=== PATIENT | male | born 1990 | race Caucasian/White ===

== ENCOUNTER 2019-11-11 20:14 | Emergency (ER) | payer BC, SELFPAY ==
--- NOTE | 2019-11-11 20:22 | XR_ITS ---
WS: [id number] CHEST 2 VIEWS HISTORY: cough COMPARISON: 02/28/2011 Lungs: Clear with no abnormality. No pleural effusion or pneumothorax. Cardiac size: Normal. Mediastinum/Aorta: Normal mediastinum. Bones: Normal. XR/XR chest 2V* [id number] IMPRESSION: Normal chest.
[2019-11-11 20:29] VITALS: BP 145/98; PULSE 74; RESP 18; TEMP 36.9; O2SAT 96; BMI 42.0
--- NOTE | 2019-11-11 20:46 | ED_ITS ---
Documented by User: Rina Mcfarland DO 11/11/19 22:44 HPI - SOB/Dyspnea General: Chief Complaint: Shortness of Breath/Dyspnea Stated Complaint: SOB Time Seen by Provider: 11/11/19 20:38 History of Present Illness: HPI Narrative: Pt has been coughing heavily all day, he states he has not had fever, dry cough, cant catch his breath, feels short of breath, denies chest pain, ,no sore throat, no n/v/d. He has been wheezing and he has never wheezed before MD elicited complaint: shortness of breath and cough Onset (ago): day(s) (1) Timing: constant Severity: moderate Exacerbating factors: lying flat and exertion Relieving factors: upright position Associated symptoms: Reports cough; Deny abdominal pain, fever(s), lightheadedness, nausea or vomiting Treatment prior to arrival: none Review of Systems General: Reports: 10 or more systems reviewed and unremarkable except in HPI and below Const: Denies: fever, chills or fatigue ENMT: Denies: throat pain Card: Denies: lightheadedness Resp: Reports: shortness of breath and non-productive cough; Denies: productive cough GI: Denies: abdominal pain, nausea, vomiting, diarrhea, constipation or blood in stool Musc: Denies: back pain or extremity swelling Skin/Breast: Denies: rash Neuro: Denies: headache, numbness in extremities or weakness in extremities PFS ED PFSH: Social History Smoking and tobacco status: never smoked Physical Exam Const: COMMON NORMALS: no apparent distress and oriented x3 GENERAL APPEARANCE: cooperative; not in distress HENMT: COMMON NORMALS: normocephalic HEAD & SCALP: normal to inspection and normocephalic MOUTH: oral and palatal mucosa normal and lip normal THROAT: posterior oropharynx normal and tonsils normal Neck/C-Spine: COMMON NORMALS: full ROM, no lymphadenopathy, supple and no meningeal signs GENERAL: Yes normal visual inspection and Yes trachea midline Chest: COMMONS NORMALS: inspection of chest normal Resp: COMMON NORMALS: normal respiratory effort EFFORT & INSPECTION: Yes able to speak in complete sentences and No respiratory distress AUSCULTATION: no rales, no rhonchi and wheezes (mild) expiratory wheezes and throughout Cardio: COMMON NORMALS: regular rate, regular rhythm, S1 normal heart sound, S2 normal heart sound and no murmurs RATE: regular rate RHYTHM: regular rhythm HEART SOUNDS: S1 normal and S2 normal PERIPHERAL PULSES: radial pulses present and dorsalis pedis pulses present GI: COMMON NORMALS: normal to inspection, nondistended, normoactive bowel sounds, soft to palpation and non-tender INSPECTION: Yes normal to inspection AUSCULTATION: Yes normoactive bowel sounds PALPATION: Yes soft, No tender, No guarding and No rigid RECTAL EXAM: Yes deferred : COMMON NORMALS: Yes no CVA tenderness BLADDER/KIDNEY EXAM: Yes no CVA tenderness Back/Pelvis: COMMON NORMALS: no CVA tenderness Extremity: COMMON NORMALS: normal to inspection, full ROM, normal capillary refill, no calf tenderness and no pedal edema Neuro: COMMON NORMALS: oriented x3, CN's II-XII intact bilaterally, moves all extremities and no focal motor deficits MENINGEAL SIGNS: Yes no meningeal signs Skin: COMMON NORMALS: no rashes or lesions noted GENERAL SKIN EXAM: no rashes or lesions noted Course Vital Signs: Vital signs: Vital Signs Temperature 98.5 F 11/11/19 20:29 Pulse Rate 76 11/12/19 00:41 Respiratory Rate 18 11/12/19 00:41 Blood Pressure 145/72 11/12/19 00:41 Pulse Oximetry 94 11/12/19 00:41 MDM - SOB/Dyspnea Lab Data: Labs: Lab Results 11/11/19 11/11/19 11/11/19 Range/Units 20:10 20:10 20:10 WBC 9.1 (4.0-10.0) 10^3/ uL RBC 5.73 H (4.1-5.3) 10^6/u L Hgb 16.0 (11.7-16.6) g/dL Hct 48.9 (42.0-52.0) % MCV 85.3 (80-94) fL MCH 27.9 L (28.0-34.0) pg MCHC 32.7 (30.0-36.0) g/dL RDW 12.6 (12.1-15.1) % Plt Count 306 (130-400) 10^3/c mm MPV 11.5 H (7.4-10.4) fL Neut % (Auto) 62.6 % Lymph % (Auto) 23.2 % [place] % (Auto) 5.9 % Eos % (Auto) 7.2 % Baso % (Auto) 0.9 % Neut # (Auto) 5.7 (1.8-7.7) 10^3/u L Lymph # (Auto) 2.1 (0.8-4.8) 10^3/u L [place] # (Auto) 0.5 (0.2-0.9) 10^3/u L Eos # (Auto) 0.7 (0.0-0.8) 10^3/u L Baso # (Auto) 0.1 (0.0-0.1) 10^3/u L Nucleated RBC % (a uto) 0 % Nucleated RBCs # 0.0 /100WBC Sodium 140 (136-145) mmol/L Potassium 4.3 (3.5-5.1) mmol/L Chloride 98 (98-107) mmol/L Carbon Dioxide 29 (22-29) mmol/L Anion Gap 17.3 (5-19) BUN 8 (6-20) mg/dL Creatinine 1.0 (0.7-1.2) mg/dL GFR Calculation 89.6 L (90-130) mL/min Glucose 91 (65-115) mg/dL Calculated Osmolal ity 285 (285-295) mOsm/k g Calcium 10.2 (8.5-10.5) mg/dL Total Bilirubin 0.4 (0.15-1.2) mg/dL AST 34 (0-40) U/L ALT 49 H (0-41) U/L Alkaline Phosphata se 78 (40-130) IU/L Total Protein 8.6 (6.6-8.7) g/dL Albumin 5.1 (3.5-5.2) g/dL Globulin 3.5 (1.3-4.6) g/dL Influenza Type A A g Negative (Negative) Influenza Type B A g Negative (Negative) Discharge Plan Discharge Patient Disposition: Home, Self-Care Clinical Impression: Acute bronchospasm Community acquired pneumonia Qualifiers: Laterality: right Lung location: middle lobe of lung Qualified Code(s): J18.9 - Pneumonia, unspecified organism Condition: Stable Prescriptions: New Levaquin 750 mg tablet 750 mg PO DAILY 10 Days Qty: 10 RF: 0 albuterol sulfate 90 mcg/actuation HFA aerosol inhaler 2 inh INHALATION Q6H PRN (Reason: shortness of breath or wheezing) Qty: 8.5 RF: 0 No Action paroxetine HCl [Paxil] 40 mg tablet 40 mg PO DAILY RF: 0 Zyrtec 10 mg Tablet 10 mg PO DAILY RF: 0 Nasal [place] 12Hr(oxymetazoline 0.05 % [place],Non-Aerosol 2 spray INTRANASAL Q12H PRN (Reason: SINUS CONGESTION) RF: 0 Discharge Orders: Discharge Order (Routine); Ordered 11/12/19 Ordered By: Jayda Lizama Referrals: CHERYL [Other] Channing Eaton DO [Referring] - 4-7 days Discharge Diet: Usual diet Discharge Activity: Increase activity as tolerated Patient Instructions: Bronchospasm (ED), Pneumonia (ED) Activity Restrictions/Additional Instructions: quarantine yourself for 12 days unless COVID test is negative, wear mask around others, nurse will give you info to get your COVID results. F/u with PCP in 1-2 days, return if worse, any problem, any change. Drink plenty of fluids. Use albuterol inhaler 2 puffs every 4 hours as needed for shortness of breath. Discharge Date/Time: 11/12/19 01:14 Sign Out Sign Out Data: Patient Sign Out occurred on 11/11/19 at 23:49. Patient's care was discussed, and care was transferred from to Jayda Lizama. Coding Level of Care Code ED Computer Support Specialist Instructor for Chg Fwd Exam Comprehensive Documented by User: Jayda Lizama 11/12/19 03:46 HPI - SOB/Dyspnea General: Chief Complaint: Shortness of Breath/Dyspnea Stated Complaint: SOB Time Seen by Provider: 11/11/19 20:38 PFSH ED PFSH: Social History Smoking and tobacco status: never smoked Course Vital Signs: Vital signs: Vital Signs Temperature 98.5 F 11/11/19 20:29 Pulse Rate 76 11/12/19 00:41 Respiratory Rate 18 11/12/19 00:41 Blood Pressure 145/72 11/12/19 00:41 Pulse Oximetry 94 11/12/19 00:41 MDM - SOB/Dyspnea MDM Narrative: Medical decision making narrative: Mr. Patterson is better after breathing treatments here. He understands he needs to be quarantined at home until his zamora test comes back. He denies having any other questions or concerns and is ready for discharge. Lab Data: Labs: Lab Results 11/11/19 11/11/19 11/11/19 Range/Units 20:10 20:10 20:10 WBC 9.1 (4.0-10.0) 10^3/ uL RBC 5.73 H (4.1-5.3) 10^6/u L Hgb 16.0 (11.7-16.6) g/dL Hct 48.9 (42.0-52.0) % MCV 85.3 (80-94) fL MCH 27.9 L (28.0-34.0) pg MCHC 32.7 (30.0-36.0) g/dL RDW 12.6 (12.1-15.1) % Plt Count 306 (130-400) 10^3/c mm MPV 11.5 H (7.4-10.4) fL Neut % (Auto) 62.6 % Lymph % (Auto) 23.2 % [place] % (Auto) 5.9 % Eos % (Auto) 7.2 % Baso % (Auto) 0.9 % Neut # (Auto) 5.7 (1.8-7.7) 10^3/u L Lymph # (Auto) 2.1 (0.8-4.8) 10^3/u L [place] # (Auto) 0.5 (0.2-0.9) 10^3/u L Eos # (Auto) 0.7 (0.0-0.8) 10^3/u L Baso # (Auto) 0.1 (0.0-0.1) 10^3/u L Nucleated RBC % (a uto) 0 % Nucleated RBCs # 0.0 /100WBC Sodium 140 (136-145) mmol/L Potassium 4.3 (3.5-5.1) mmol/L Chloride 98 (98-107) mmol/L Carbon Dioxide 29 (22-29) mmol/L Anion Gap 17.3 (5-19) BUN 8 (6-20) mg/dL Creatinine 1.0 (0.7-1.2) mg/dL GFR Calculation 89.6 L (90-130) mL/min Glucose 91 (65-115) mg/dL Calculated Osmolal ity 285 (285-295) mOsm/k g Calcium 10.2 (8.5-10.5) mg/dL Total Bilirubin 0.4 (0.15-1.2) mg/dL AST 34 (0-40) U/L ALT 49 H (0-41) U/L Alkaline Phosphata se 78 (40-130) IU/L Total Protein 8.6 (6.6-8.7) g/dL Albumin 5.1 (3.5-5.2) g/dL Globulin 3.5 (1.3-4.6) g/dL Influenza Type A A g Negative (Negative) Influenza Type B A g Negative (Negative) Imaging Data^: CXR: My impression: No acute cardiopulmonary findings. Discharge Plan Discharge Patient Disposition: Home, Self-Care Clinical Impression: Acute bronchospasm Community acquired pneumonia Qualifiers: Laterality: right Lung location: middle lobe of lung Qualified Code(s): J18.9 - Pneumonia, unspecified organism Condition: Stable Prescriptions: New Levaquin 750 mg tablet 750 mg PO DAILY 10 Days Qty: 10 RF: 0 albuterol sulfate 90 mcg/actuation HFA aerosol inhaler 2 inh INHALATION Q6H PRN (Reason: shortness of breath or wheezing) Qty: 8.5 RF: 0 No Action paroxetine HCl [Paxil] 40 mg tablet 40 mg PO DAILY RF: 0 Zyrtec 10 mg Tablet 10 mg PO DAILY RF: 0 Nasal [place] 12Hr(oxymetazoline 0.05 % [place],Non-Aerosol 2 spray INTRANASAL Q12H PRN (Reason: SINUS CONGESTION) RF: 0 Discharge Orders: Discharge Order (Routine); Ordered 11/12/19 Ordered By: Jayda Lizama Referrals: ERHONICKYU [Other] Channing Eaton DO [Referring] - 4-7 days Discharge Diet: Usual diet Discharge Activity: Increase activity as tolerated Patient Instructions: Bronchospasm (ED), Pneumonia (ED) Activity Restrictions/Additional Instructions: quarantine yourself for 12 days unless COVID test is negative, wear mask around others, nurse will give you info to get your COVID results. F/u with PCP in 1-2 days, return if worse, any problem, any change. Drink plenty of fluids. Use albuterol inhaler 2 puffs every 4 hours as needed for shortness of breath. Discharge Date/Time: 11/12/19 01:14 Sign Out Sign Out Data: Patient Sign Out occurred on 11/11/19 at 23:49. Patient's care was discussed, and care was transferred from to Jayda Lizama. Coding Level of Care Code ED Computer Support Specialist Instructor for José Antonio Fwanyi Exam Comprehensive
[2019-11-11 22:16] VITALS: PULSE 73; RESP 16; O2SAT 96
[2019-11-11 22:45] LABS: Basophils # 0.1 10^3/uL (0.0-0.1); Basophils % 0.9 %; Eosinophils # 0.7 10^3/uL (0.0-0.8); Eosinophils % 7.2 %; Hematocrit 48.9 % (42.0-52.0); Lymphocytes # 2.1 10^3/uL (0.8-4.8); Lymphocytes % 23.2 %; Mean Corpuscular HGB Conc 32.7 g/dL (30.0-36.0); Mean Corpuscular Hemoglobin 27.9 pg (28.0-34.0); Mean Corpuscular Volume 85.3 fL (80-94); Mean Platelet Volume 11.5 fL (7.4-10.4); Monocytes # 0.5 10^3/uL (0.2-0.9); Monocytes % 5.9 %; Neutrophils # 5.7 10^3/uL (1.8-7.7); Neutrophils % 62.6 %; Nucleated Red Blood Cells % 0 %; Platelet Count 306 10^3/cmm (130-400); Red Blood Count 5.73 10^6/uL (4.1-5.3); Red Cell Distribution Width 12.6 % (12.1-15.1); White Blood Count 9.1 10^3/uL (4.0-10.0)
[2019-11-11] MEDS: levoFLOXacin 750 mg Tablet PO (22:45)
[2019-11-11 23:07] LABS: Influenza A by IFA Negative (Negative); Influenza B by IFA Negative (Negative)
[2019-11-11 23:13] LABS: Alanine Aminotransferase 49 U/L (0-41); Albumin Level 5.1 g/dL (3.5-5.2); Alkaline Phosphatase 78 IU/L (40-130); Anion Gap 17.3 (5-19); Aspartate Amino Transferase 34 U/L (0-40); Blood Urea Nitrogen 8 mg/dL (6-20); Calcium 10.2 mg/dL (8.5-10.5); Carbon Dioxide 29 mmol/L (22-29); Chloride 98 mmol/L (98-107); Globulin 3.5 g/dL (1.3-4.6); Glomerular Filtration Rate 89.6 mL/min (90-130); Glucose 91 mg/dL (65-115); Osmolality Calculated 285 mOsm/kg (285-295); Potassium 4.3 mmol/L (3.5-5.1); Sodium 140 mmol/L (136-145); Total Bilirubin 0.4 mg/dL (0.15-1.2); Total Protein 8.6 g/dL (6.6-8.7)
[2019-11-12 00:41] VITALS: BP 145/72; PULSE 76; RESP 18; O2SAT 94
[2019-11-13 20:56] LABS: Quest SARS-CoV-2 RNA NOT DETECTED (NOT DETECTED)
--- NOTE | 2019-11-14 08:46 | PC.NURSE ---
Pt called and notified of negative COVID result.
[2019-11-14 12:05] LABS: ABG PCO2 41.5 mmHg (35-45); ABG PH Result 7.43 (7.35-7.45); Alveolar-Arterial Oxygen Gradi 29.8 mmHg (5-10); Arterial Blood Gas Hematocrit 48.4 % (42-52); Blood Gas Allen Test Pos; Blood Gas Sample Site Radial, right; Blood Gas Sample Type Arterial; Carboxyhemoglobin 0.5 %THgb (0.4-20.1); HCO3 ABG 27.7 mmol/L (22-26); HGB O2 Sat 93.6 % (95-100); Ionized Calcium Level - ABG 1.2 mmol/L (1.1-1.4); Methemoglobin 0.8 % (0.4-1.5); Oxygen Device ROOM AIR; Oxygen Saturation ABG 94.9; PO2 ABG 67.7 mmHg (80.0-100.0); Potassium Level - ABG 4.1 mmol/L (3.5-5.0); Total Hemoglobin 15.8 g/dL (14-18)
== END 2019-11-12 01:14 | disposition home or self-care (01) ==
PROVIDERS: Emergency Medicine; Emergency Provider Emergency Medicine
DX: J18.8 Other pneumonia, unspecified organism (principal); J98.01 Acute bronchospasm
CPT/HCPCS: 12345; 36415; 36600; 71046; 80051; 80053; 82810; 83986; 85025; 87040; 87635; 87804; 94640; 99283

== ENCOUNTER 2022-04-20 21:07 | Emergency (ER) | payer OTHER, BC, MEDICAID, SELFPAY ==
[2022-04-20 21:10] VITALS: BMI 44.7
[2022-04-20 21:51] VITALS: BP 132/78; PULSE 81; RESP 18; O2SAT 97
[2022-04-20 23:08] VITALS: RESP 18
[2022-04-20] MEDS: amoxicillin-clav 875-125 mg Tablet 1 TAB PO (23:08)
[2022-04-20] MEDS: oxyCODONE-APAP 5-325 mg Tablet 2 TAB PO (23:08)
[2022-04-20] MEDS: dexamethasone 4 mg Tablet 10 MG PO (23:09)
[2022-04-20 23:14] VITALS: PULSE 82; RESP 18; O2SAT 98
--- NOTE | 2022-04-21 17:05 | ED_ITS ---
HPI - Ear Problem General: Chief complaint: Ear Stated complaint: Right ear pain Time Seen by Provider: 04/20/22 21:50 Source: patient History of Present Illness: Healthy 31 year old male with a complaint of right ear pain worsening over the day. It is improved after 800 milligrams of ibuprofen at home. He denies fever. He states there has been some congestion. No cough. No recent exposure as far as swimming beer and no history of continued ear problems. MD Complaint: ear pain Location: right ear Duration: constant Severity: moderate Relieving factors: NDAIDs Exacerbating factors: nothing Discharge from ear: no Associated symptoms: Reports ear or mastoid pain and neck pain (down right side below ear); Denies external ear pain, fever(s), headache(s), hearing loss, rhinorrhea or tinnitus Treatment prior to arrival: oral analgesic Review of Systems Const: Denies: fever(s) Eyes: Denies: change in vision ENMT: Reports: enlarged tonsils and ear or mastoid pain; Denies: throat pain, mouth pain, swelling of lips/tongue, ear discharge, tinnitus or nasal congestion Card: Denies: chest pain Resp: Denies: dyspnea GI: Denies: vomiting Musc: Reports: neck pain (down right side below ear) Neuro: Denies: headache(s) PFSH ED PFSH: Social History Smoking and tobacco status: never smoked Physical Exam Const: COMMON NORMALS: no acute distress GENERAL APPEARANCE: cooperative HENMT: COMMON NORMALS: normocephalic, atraumatic, external ears normal, Normal nasal mucous membranes and turbinates present and moist oral mucous membranes HEAD & SCALP: normocephalic and atraumatic FACE & SINUS: normal facial exam and face symmetric NOSE: Normal nasal mucous membranes and turbinates present EXTERNAL EAR: Yes external ears normal TYMPANIC MEMBRANE: TM normal on the left and TM abnormal TM laterality: right Details: bulging, dull, effusion, erythematous, fluid behind TM and loss of landmarks MOUTH: Normal oral and palatal mucosa present THROAT: abnormal tonsil bilateral hypertrophy; no erythema Eye: COMMON NORMALS: Equal, round and reactive pupils present and EOMs intact bilaterally PUPIL: Yes Equal, round and reactive pupils present Neck/C-Spine: COMMON NORMALS: full ROM GENERAL: Yes trachea midline Chest: CHEST: Yes Symmetrical chest wall rise Resp: COMMON NORMALS: normal respiratory effort and No retractions Cardio: COMMON NORMALS: regular rate and regular rhythm RATE: regular rate RHYTHM: regular rhythm Neuro: PERRY COMA SCALE: document GCS findings [place] coma scale eye opening: Spontaneous [place] coma scale verbal response: Orientated [place] coma scale motor response: Obey commands [place] coma scale total score: 15 Course Vital Signs: Vital signs: Vital Signs Pulse Rate 82 04/20/22 23:14 Respiratory Rate 18 04/20/22 23:14 Blood Pressure 132/78 04/20/22 21:51 Pulse Oximetry 98 04/20/22 23:14 Oxygen Delivery Me thod 04/20/22 21:51 MDM - Ear Medical Decision Making Clearly otitis media on the left. Significant. No perf. Treat accordingly. Discharge Plan Discharge Patient Disposition: Home Clinical Impression: Otitis media Qualifiers: Otitis media type: suppurative Chronicity: acute Laterality: right Recurrence: non-recurrent Spontaneous tympanic membrane rupture: without spontaneous rupture Qualified Code(s): H66.001 - Acute suppurative otitis media without spontaneous rupture of ear drum, right ear Condition: Stable Prescriptions: New amoxicillin-pot clavulanate 875-125 mg tablet 1 tab PO BID Qty: 20 0RF ketorolac 10 mg tablet 10 mg PO TID PRN (Reason: pain) Qty: 10 0RF No Action paroxetine HCl [Paxil] 40 mg tablet 40 mg PO DAILY sulfamethoxazole-trimethoprim [Bactrim DS] 800-160 mg tablet 1 tab PO BID 7 Days Qty: 14 0RF Zyrtec 10 mg Tablet 10 mg PO DAILY Nasal [place] 12Hr(oxymetazoline 0.05 % [place],Non-Aerosol 2 spray INTRANASAL Q12H PRN (Reason: SINUS CONGESTION) albuterol sulfate 90 mcg/actuation HFA aerosol inhaler 2 inh INHALATION Q6H PRN (Reason: shortness of breath or wheezing) Qty: 8.5 0RF Discharge Orders: Discharge ED (Routine); Ordered 04/20/22 Ordered By: Michael Tidwell Patient Instructions: Ear Infection (ED) Activity Restrictions/Additional Instructions: Return for worsening pain, hearing loss, fever despite 2-3 doses of antibiotics, other concerning symptoms. Coding Level of Care Code ED Crew Supervisor for José Antonio Stone
== END 2022-04-20 23:15 | disposition home or self-care (01) ==
PROVIDERS: Emergency Provider Emergency Medicine
DX: H66.001 Acute suppurative otitis media without spontaneous rupture of ear drum, right ear (principal)
CPT/HCPCS: 99283; J8540

== ENCOUNTER → 2025-03-29 13:46 | Outpatient (BNVA) | payer OTHER, BC, MEDICAID, SELFPAY | PROVIDERS: Visit Provider Emergency Medicine | DX: J02.9 Acute pharyngitis, unspecified (principal); R22.1 Localized swelling, mass and lump, neck | CPT/HCPCS: 87070; 87880 ==